=== PATIENT | male | born 1960 | race Two or more races ===

== ENCOUNTER → 2017-04-07 06:32 | Outpatient (CLI) | payer OTHER ==
[~2017-04-07 06:32] MED LIST: AMARYL PO; AVAPRO300 MG PO; GABA PO; LANTUS; METROPOLOL PO; SYNTH PO; TRADJENTA5 MG PO; ZOCO PO
== END | disposition home or self-care (01) ==
LOC: LAB 06:32
DX: R97.20 Elevated prostate specific antigen [PSA] (principal); N20.0 Calculus of kidney; N20.1 Calculus of ureter; R33.9 Retention of urine, unspecified

== ENCOUNTER 2017-04-08 06:38 | Outpatient (CLI) | payer OTHER | END 2017-04-08 06:50 | disposition home or self-care (01) | LOC: LAB 06:38 | DX: R97.20 Elevated prostate specific antigen [PSA] (principal); N20.0 Calculus of kidney; N20.1 Calculus of ureter; R33.9 Retention of urine, unspecified ==

== ENCOUNTER 2017-07-05 07:27 | Outpatient (CLI) | payer OTHER | END 2017-07-05 07:36 | disposition home or self-care (01) | LOC: RAD 07:27 | DX: N20.0 Calculus of kidney (principal) ==

== ENCOUNTER → 2017-08-09 07:52 | Outpatient (CLI) | payer OTHER | END | disposition home or self-care (01) | LOC: RAD 07:52 | DX: R97.20 Elevated prostate specific antigen [PSA] (principal); N20.0 Calculus of kidney; N20.1 Calculus of ureter; R33.9 Retention of urine, unspecified ==

== ENCOUNTER 2017-09-04 07:12 | Outpatient (CLI) | payer OTHER | END 2017-09-04 07:19 | disposition home or self-care (01) | LOC: LAB 07:12 | DX: I10 Essential (primary) hypertension (principal); E03.8 Other specified hypothyroidism; E78.2 Mixed hyperlipidemia; E11.40 Type 2 diabetes mellitus with diabetic neuropathy, unspecified ==

== ENCOUNTER 2017-11-25 07:33 | Outpatient (CLI) | payer OTHER | END 2017-11-25 07:49 | disposition home or self-care (01) | LOC: LAB 07:33 → RAD 07:33 | DX: R97.20 Elevated prostate specific antigen [PSA] (principal); N20.0 Calculus of kidney; N20.1 Calculus of ureter; R33.8 Other retention of urine ==

== ENCOUNTER 2017-11-29 07:48 | Outpatient (CLI) | payer OTHER | END 2017-11-29 08:03 | disposition home or self-care (01) | LOC: RAD 07:48 → LAB 07:48 → RAD 08:03 | DX: N30.00 Acute cystitis without hematuria (principal); R31.9 Hematuria, unspecified; N20.0 Calculus of kidney ==

== ENCOUNTER 2017-12-05 05:50 | Day surgery (SDC) | payer OTHER | END 2017-12-05 12:20 | disposition home or self-care (01) | LOC: CIR.AMB 05:50 | DX: N20.0 Calculus of kidney (principal) ==

== ENCOUNTER 2018-01-03 07:08 | Outpatient (CLI) | payer OTHER | END 2018-01-03 07:11 | disposition home or self-care (01) | LOC: LAB 07:08 | DX: E03.8 Other specified hypothyroidism (principal); E11.65 Type 2 diabetes mellitus with hyperglycemia; E78.2 Mixed hyperlipidemia; I10 Essential (primary) hypertension ==

== ENCOUNTER 2018-09-18 07:30 | Outpatient (CLI) | payer OTHER | END 2018-09-18 07:48 | disposition home or self-care (01) | LOC: LAB 07:30 | DX: E03.8 Other specified hypothyroidism (principal); I10 Essential (primary) hypertension; E78.2 Mixed hyperlipidemia; E11.65 Type 2 diabetes mellitus with hyperglycemia; E11.40 Type 2 diabetes mellitus with diabetic neuropathy, unspecified ==

== ENCOUNTER 2019-01-02 07:19 | Outpatient (CLI) | payer OTHER | END 2019-01-02 07:25 | disposition home or self-care (01) | LOC: LAB 07:19 | DX: E03.8 Other specified hypothyroidism (principal); E11.65 Type 2 diabetes mellitus with hyperglycemia; E78.2 Mixed hyperlipidemia ==

== ENCOUNTER 2019-07-03 07:45 | Outpatient (CLI) | payer OTHER | END 2019-07-03 07:55 | disposition home or self-care (01) | LOC: LAB 07:45 | DX: E03.8 Other specified hypothyroidism (principal); E11.69 Type 2 diabetes mellitus with other specified complication; E78.2 Mixed hyperlipidemia; I10 Essential (primary) hypertension ==

== ENCOUNTER → 2019-09-18 07:16 | Outpatient (CLI) | payer OTHER | END | disposition home or self-care (01) | LOC: LAB 07:16 | PROVIDERS: ATTEND Internal Medicine Endocrinology, Diabetes & Metabolism | DX: E11.69 Type 2 diabetes mellitus with other specified complication (principal); E03.8 Other specified hypothyroidism; E78.2 Mixed hyperlipidemia; I10 Essential (primary) hypertension ==

== ENCOUNTER → 2020-01-19 07:34 | Outpatient (CLI) | payer OTHER | END | disposition home or self-care (01) | LOC: LAB 07:34 | PROVIDERS: ATTEND Internal Medicine Endocrinology, Diabetes & Metabolism | DX: E03.8 Other specified hypothyroidism (principal); I10 Essential (primary) hypertension; E78.2 Mixed hyperlipidemia; E11.65 Type 2 diabetes mellitus with hyperglycemia ==

== ENCOUNTER 2020-05-27 07:46 | Outpatient (CLI) | payer OTHER | END 2020-05-27 07:51 | disposition home or self-care (01) | LOC: LAB 07:46 | PROVIDERS: ATTEND Internal Medicine Endocrinology, Diabetes & Metabolism | DX: E03.8 Other specified hypothyroidism (principal); E55.9 Vitamin D deficiency, unspecified; E78.2 Mixed hyperlipidemia; E11.65 Type 2 diabetes mellitus with hyperglycemia; I10 Essential (primary) hypertension ==

== ENCOUNTER → 2020-09-18 07:44 | Outpatient (CLI) | payer OTHER | END | disposition home or self-care (01) | LOC: LAB 07:44 | PROVIDERS: ATTEND Internal Medicine Endocrinology, Diabetes & Metabolism | DX: E03.8 Other specified hypothyroidism (principal); E78.2 Mixed hyperlipidemia; E11.69 Type 2 diabetes mellitus with other specified complication; I10 Essential (primary) hypertension ==

== ENCOUNTER 2021-02-19 06:46 | Outpatient (CLI) | payer OTHER | END 2021-02-19 06:48 | disposition home or self-care (01) | LOC: LAB 06:46 | PROVIDERS: ATTEND Internal Medicine Endocrinology, Diabetes & Metabolism | DX: E03.8 Other specified hypothyroidism (principal); I10 Essential (primary) hypertension; E78.2 Mixed hyperlipidemia; E11.65 Type 2 diabetes mellitus with hyperglycemia; E55.9 Vitamin D deficiency, unspecified ==

== ENCOUNTER 2021-04-27 07:21 | Outpatient (CLI) | payer OTHER | END 2021-04-27 07:35 | disposition home or self-care (01) | LOC: LAB 07:21 | DX: E11.40 Type 2 diabetes mellitus with diabetic neuropathy, unspecified (principal); I11.9 Hypertensive heart disease without heart failure; E78.00 Pure hypercholesterolemia, unspecified ==

== ENCOUNTER 2021-06-09 07:10 | Outpatient (CLI) | payer OTHER | END 2021-06-09 07:20 | disposition home or self-care (01) | LOC: LAB 07:10 | PROVIDERS: ATTEND Internal Medicine Endocrinology, Diabetes & Metabolism | DX: E11.65 Type 2 diabetes mellitus with hyperglycemia (principal); E78.2 Mixed hyperlipidemia; I10 Essential (primary) hypertension ==

== ENCOUNTER 2021-09-03 07:39 | Outpatient (CLI) | payer OTHER | END 2021-09-03 07:41 | disposition home or self-care (01) | LOC: SONOGRAMA 07:39 | DX: N18.2 Chronic kidney disease, stage 2 (mild) (principal); I10 Essential (primary) hypertension; C11.2 Malignant neoplasm of lateral wall of nasopharynx ==

== ENCOUNTER → 2021-09-03 08:26 | Outpatient (CLI) | payer OTHER | END | disposition home or self-care (01) | LOC: LAB 08:26 | PROVIDERS: ATTEND Internal Medicine Nephrology | DX: N18.2 Chronic kidney disease, stage 2 (mild) (principal); I10 Essential (primary) hypertension; E11.22 Type 2 diabetes mellitus with diabetic chronic kidney disease ==

== ENCOUNTER 2021-09-08 07:41 | Outpatient (CLI) | payer OTHER | END 2021-09-08 07:48 | disposition home or self-care (01) | LOC: LAB 07:41 | PROVIDERS: ATTEND Internal Medicine Nephrology | DX: N18.2 Chronic kidney disease, stage 2 (mild) (principal); I10 Essential (primary) hypertension; E11.22 Type 2 diabetes mellitus with diabetic chronic kidney disease ==

== ENCOUNTER 2021-11-10 07:33 | Outpatient (CLI) | payer OTHER | END 2021-11-10 07:54 | disposition home or self-care (01) | LOC: LAB 07:33 | DX: E11.65 Type 2 diabetes mellitus with hyperglycemia (principal); E03.8 Other specified hypothyroidism; E78.2 Mixed hyperlipidemia; I10 Essential (primary) hypertension ==

== ENCOUNTER 2022-02-16 07:26 | Outpatient (CLI) | payer OTHER | END 2022-02-16 07:29 | disposition home or self-care (01) | LOC: LAB 07:26 | DX: I11.9 Hypertensive heart disease without heart failure (principal); E78.00 Pure hypercholesterolemia, unspecified; E11.40 Type 2 diabetes mellitus with diabetic neuropathy, unspecified; N18.31 Chronic kidney disease, stage 3a; I10 Essential (primary) hypertension; E11.22 Type 2 diabetes mellitus with diabetic chronic kidney disease; R80.9 Proteinuria, unspecified ==

== ENCOUNTER 2024-06-29 07:06 | Outpatient (CLI) | payer OTHER | END 2024-06-29 07:13 | disposition home or self-care (01) | LOC: SONOGRAMA 07:06 | DX: N18.32 Chronic kidney disease, stage 3b (principal); I10 Essential (primary) hypertension ==